=== PATIENT | male | born 1990 | race Caucasian/White ===

== ENCOUNTER 2017-04-12 20:55 | Emergency (ER) | payer OTHER ==
[2017-04-12 21:01] VITALS: BP 112/66; PULSE 84; TEMP 98.3; BMI 28.2
--- NOTE | 2017-04-12 21:27 | PDOC ---
History of Present Illness - History of Present Illness Initial Comments: 04/12/17 21:27 The patient is a 27 year old male, with no significant past medical history, who presents to the emergency department with for evaluation s/p handling a bat at [employer] 5 days ago. The patient reports visualizing the bat at 6:30PM on the floor, covering the bat with a sweater, and relocating the bat outside. He denies ever touching the bad with his bare hands. He denies being bitten by the bat. He states he has been paranoid after the event and wanted to be seen by a doctor for reassurance. He denies any rashes. He denies chest pain, shortness of breath, headache and dizziness. He denies fever, chills, nausea, vomit, diarrhea and constipation. He denies dysuria, frequency, urgency and hematuria. PAST MEDICAL HISTORY: no significant history PAST SURGICAL HISTORY: no significant history FAMILY HISTORY: no pertinent history SOCIAL HISTORY: Pt lives with family and is employed. MEDICATIONS: reviewed ALLERGIES: As per nursing notes Adult ROS General: No fevers or chills, no weakness, no weight loss HEENT: No change in vision. No sore throat,. No ear pain CardioVascular: No chest pain or shortness of breath Respiratory:No cough, or wheezing. Gastrointestinal: no nausea, vomiting, diarrhea or constipation, No rectal bleeding Genitourinary: No dysuria, hematuria, or frequency Musculoskeletal: No joint or muscle pain or swelling Neurologic: No headache, vertigo, dizziness or loss of consciousness Psychiatric: nor depression Skin: No rashes or easy bruising Endocrine: no increased thirst or abnormal weight change Allergic: no skin or latex allergy All other systems reviewed and normal Physical Exam: GENERAL: The patient is awake, alert, and fully oriented, in no acute distress. HEAD: Normal with no signs of trauma. EYES: Pupils equal, round and reactive to light, extraocular movements intact, sclera anicteric, conjunctiva clear. EXTREMITIES: Normal range of motion, no edema. NEUROLOGICAL: Normal speech, normal gait. PSYCH: Normal mood, normal affect. SKIN: Warm, Dry, normal turgor, no rashes or lesions noted. <Rita Palm - Last Filed: 04/12/17 21:27> - General History Source: Patient Exam Limitations: No Limitations - History of Present Illness Initial Comments: 04/12/17 23:36 A portion of this note was documented by scribe services under my direction. I have reviewed the details of the note, within reason, and agree with the documentation. The case summary and management plan written by me. Assessment and plan This is a 27-year-old male who was a grandson gestation with a bat flew into the station and landed on the floor. Patient put his sweatshirt over the bat scooped it up and took her outside without coming in contact with it. The bat flew into the station during the early evening hours which would be typical behavior for bat. Patient was reassured there was nothing to worry about as he did not actually come in contact with the bat. Patient discharged told to follow-up with his primary care doctor. <Vandana Baez I - Last Filed: 04/12/17 23:37> - General Chief Complaint: Bite Stated Complaint: INCOUNTER WITH A BAT Time Seen by Provider: 04/12/17 20:59 Past History <Rita Palm - Last Filed: 04/12/17 21:27> - Past Medical History Other medical history: ADHD - Immunization History Immunization Up to Date: Yes - Psycho/Social/Smoking Cessation Hx Anxiety: No Suicidal Ideation: No Smoking History: Unknown if ever smoked Have you smoked in the past 12 months: No Number of Cigarettes Smoked Daily: 0 Information on smoking cessation initiated: No Hx Alcohol Use: No Drug/Substance Use Hx: No Substance Use Type: None <Vandana Baez I - Last Filed: 04/12/17 23:37> - Past Medical History Allergies/Adverse Reactions: Allergies Allergy/AdvReac Type Severity Reaction Status Date / Time No Known Allergies Allergy Unverified 04/12/17 21:00 Home Medications: Ambulatory Orders NK [No Known Home Medication] 04/12/17 *Physical Exam - Vital Signs Last Vital Signs Temp Pulse Resp BP Pulse Ox 98.3 F 84 14 112/66 100 04/12/17 20:58 04/12/17 20:58 04/12/17 20:58 04/12/17 20:58 04/12/17 20:58 <Rita Palm - Last Filed: 04/12/17 21:27> - Vital Signs Last Vital Signs Temp Pulse Resp BP Pulse Ox 98.3 F 84 14 112/66 100 04/12/17 20:58 04/12/17 20:58 04/12/17 20:58 04/12/17 20:58 04/12/17 20:58 <Vandana Baez I - Last Filed: 04/12/17 23:37> *DC/Admit/Observation/Transfer - Attestations Scribe Attestion: 04/12/17 21:27 Documentation prepared by Rita Palm, acting as medical clinic manager for Vandana Baez MD <Rita Palm - Last Filed: 04/12/17 21:27> - Discharge Dispostion Admit: No <Vandana Baez I - Last Filed: 04/12/17 23:37> Diagnosis at time of Disposition: General medical exam - Discharge Dispostion Disposition: HOME Condition at time of disposition: Good - Patient Instructions Additional Instructions: There is nothing to worry about regarding the encounter you had with the bat Continue any medications as previously prescribed by your physician. Thank you for coming to the Emergency Department today for your care. It was a pleasure to see you today. Please note that your evaluation is INCOMPLETE until you follow-up with your doctor.
== END 2017-04-12 21:28 | disposition home or self-care (01) ==
LOC: FER 20:55
DX: Z00.8 Encounter for other general examination (principal)
CPT/HCPCS: 99281-25